=== PATIENT | male | born 1960 | race African-American/Black ===

== ENCOUNTER 2016-07-15 08:05 | Emergency (ER) | payer OTHER, BC ==
[2016-07-15 08:32] VITALS: TEMP 98; BMI 25.1
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
[2016-07-15] MEDS ORDERED: OXYCODONE/APAP 5/325MG COMBO TABLET PO ONE (08:39)
[2016-07-15] MEDS ORDERED: METHOCARBAMOL 500 MG TABLET PO ONE (08:39)
[2016-07-15] MEDS ORDERED: IBUPROFEN 600 MG TABLET (FP) PO ONE ×2 (08:39→09:01)
[2016-07-15] MEDS ORDERED: OXYCODONE/APAP 5/325MG COMBO TABLET ONE (09:00)
[2016-07-15] MEDS ORDERED: METHOCARBAMOL 500 MG TABLET ONE (09:01)
[2016-07-15 11:52] VITALS: BP 156/89; PULSE 76
== END 2016-07-15 11:52 | disposition home or self-care (01) ==
LOC: JER 08:05
DX: M25.512 Pain in left shoulder (principal); V43.52XA Car driver injured in collision with other type car in traffic accident, initial encounter; Y93.89 Activity, other specified; Y92.410 Unspecified street and highway as the place of occurrence of the external cause
CPT/HCPCS: 73010-TC; 73030-TC-LT; 73070-TC-LT; 73523-TC; 99281-25

== ENCOUNTER 2023-06-12 15:21 | Inpatient (IN) | payer BC, OTHER ==
[2023-06-12 15:43] VITALS: BMI 33.2
[2023-06-12 17:06] LABS: BASO % 0.4 % (0-2.0); EOS % 0.9 % (0-4.5); HEMATOCRIT 21.2 % (35.4-49); LYMPH % 23.5 % (8-40); MCHC 28.6 g/dl (32.0-35.9); MEAN CELL VOLUME 55.7 fl (80-96); MEAN PLT VOLUME 7.8 fl (7.5-11.1); MONO % 6.9 % (3.8-10.2); NEUT % 68.3 % (42.8-82.8); PLATELET COUNT 624 10^3/uL (134-434); RDW 21.8 % (11.9-15.9); WHITE BLOOD COUNT 6.1 K/mm3 (4.0-10.0)
[2023-06-12 17:09] LABS: MCH 15.9 pg (25.7-33.7)
[2023-06-12 17:16] LABS: INR 1.08 (0.83-1.09); PROTHROMBIN TIME (PATIENT) 12.2 SEC (9.7-13.0)
[2023-06-12 17:18] LABS: ACTIVATED PTT 27.9 SECONDS (25.2-36.5)
[2023-06-12 17:42] LABS: POTASSIUM 4.1 mmol/L (3.5-5.1)
[2023-06-12 17:44] LABS: ALBUMIN 3.8 g/dl (3.4-5.0); BLOOD UREA NITROGEN 24.2 mg/dL (7-18)
[2023-06-12 17:48] LABS: CREATININE 1.3 mg/dL (0.55-1.3)
[2023-06-12 17:49] LABS: BILIRUBIN,TOTAL 0.6 mg/dL (0.2-1)
[2023-06-13] MEDS: oxyCODONE HCL 5 MG TABLET PO ONE (06:35)
[2023-06-13 08:17] LABS: BASO % 0.4 % (0-2.0); EOS % 1.6 % (0-4.5); HEMATOCRIT 24.6 % (35.4-49); HEMOGLOBIN 7.3 GM/dL (11.7-16.9); LYMPH % 27.5 % (8-40); MCHC 29.8 g/dl (32.0-35.9); MEAN PLT VOLUME 7.9 fl (7.5-11.1); MONO % 6.6 % (3.8-10.2); NEUT % 63.9 % (42.8-82.8); PLATELET COUNT 515 10^3/uL (134-434); RBC 3.97 M/mm3 (4.00-5.60); RDW 29.3 % (11.9-15.9); WHITE BLOOD COUNT 6.2 K/mm3 (4.0-10.0)
[2023-06-13 08:21] LABS: MCH 18.4 pg (25.7-33.7)
[2023-06-13 08:26] LABS: POTASSIUM 4.4 mmol/L (3.5-5.1)
[2023-06-13 08:34] LABS: CALCIUM 8.6 mg/dL (8.5-10.1)
[2023-06-13 08:38] LABS: CREATININE 1.2 mg/dL (0.55-1.3)
[2023-06-13] MEDS: traMADol HCL 50 MG TABLET PO PRN ×2 (10:56→17:39)
[2023-06-13 10:57] LABS: URIC ACID 5.9 mg/dL (2.6-7.2)
[2023-06-14] MEDS ORDERED: IRON SUCROSE INJECTION 200 MG in SODIUM CHLORIDE 90 ML IVPB ONE (10:00)
[2023-06-14 10:16] LABS: BASO % 0.2 % (0-2.0); EOS % 2.7 % (0-4.5); HEMATOCRIT 26.7 % (35.4-49); HEMOGLOBIN 7.9 GM/dL (11.7-16.9); LYMPH % 20.5 % (8-40); MCHC 29.6 g/dl (32.0-35.9); MEAN CELL VOLUME 62.4 fl (80-96); MEAN PLT VOLUME 8.1 fl (7.5-11.1); MONO % 6.7 % (3.8-10.2); NEUT % 69.9 % (42.8-82.8); PLATELET COUNT 559 10^3/uL (134-434); RBC 4.28 M/mm3 (4.00-5.60); RDW 29.6 % (11.9-15.9)
[2023-06-14 10:22] LABS: MCH 18.5 pg (25.7-33.7)
[2023-06-14 10:46] LABS: POTASSIUM 4.2 mmol/L (3.5-5.1)
[2023-06-14 10:51] LABS: CALCIUM 8.9 mg/dL (8.5-10.1)
[2023-06-14 10:52] LABS: ALBUMIN 3.4 g/dl (3.4-5.0); BLOOD UREA NITROGEN 19.3 mg/dL (7-18)
[2023-06-14 10:55] LABS: CREATININE 1.2 mg/dL (0.55-1.3)
[2023-06-14 10:56] LABS: TOT PROT 6.6 g/dl (6.4-8.2)
[2023-06-14] MEDS: IRON SUCROSE INJECTION 200 MG in SODIUM CHLORIDE 100 ML IVPB ONE (11:39)
[2023-06-15 08:32] LABS: BASO % 0.6 % (0-2.0); EOS % 3.3 % (0-4.5); HEMATOCRIT 28.7 % (35.4-49); HEMOGLOBIN 8.3 GM/dL (11.7-16.9); LYMPH % 30.5 % (8-40); MCHC 28.9 g/dl (32.0-35.9); MEAN CELL VOLUME 63.1 fl (80-96); MEAN PLT VOLUME 7.9 fl (7.5-11.1); MONO % 6.3 % (3.8-10.2); NEUT % 59.3 % (42.8-82.8); PLATELET COUNT 573 10^3/uL (134-434); RBC 4.55 M/mm3 (4.00-5.60); WHITE BLOOD COUNT 6.5 K/mm3 (4.0-10.0)
[2023-06-15 08:34] LABS: MCH 18.2 pg (25.7-33.7)
[2023-06-15] MEDS: BISACODYL 5 MG TABLET.DR (FP) PO ONE (17:02)
[2023-06-15] MEDS: PEG 3350/NA SULF BICARB CL/KCL 4000 ML SOLN.RECON PO ONE (17:22)
[2023-06-16 08:35] LABS: BASO % 0.3 % (0-2.0); EOS % 2.4 % (0-4.5); HEMATOCRIT 29.5 % (35.4-49); HEMOGLOBIN 8.7 GM/dL (11.7-16.9); LYMPH % 21.1 % (8-40); MCHC 29.6 g/dl (32.0-35.9); MEAN CELL VOLUME 62.7 fl (80-96); MONO % 7.2 % (3.8-10.2); PLATELET COUNT 549 10^3/uL (134-434); RDW 31.3 % (11.9-15.9); WHITE BLOOD COUNT 6.3 K/mm3 (4.0-10.0)
[2023-06-16 08:37] LABS: MCH 18.5 pg (25.7-33.7)
[2023-06-16 08:47] LABS: INR 1.11 (0.83-1.09); PROTHROMBIN TIME (PATIENT) 12.5 SEC (9.7-13.0)
[2023-06-16 08:53] LABS: POTASSIUM 4.1 mmol/L (3.5-5.1)
[2023-06-16 08:57] LABS: BLOOD UREA NITROGEN 14.2 mg/dL (7-18)
[2023-06-16 09:00] LABS: CREATININE 1.3 mg/dL (0.55-1.3)
[2023-06-16 09:22] LABS: ANISOCYTOSIS 3+; MACROCYTOSIS 0
[2023-06-16] MEDS ORDERED: traMADol HCL 50 MG TABLET PO PRN (19:44)
[2023-06-17] MEDS: PANTOPRAZOLE 40 MG TABLET PO SCH (10:08)
[2023-06-17] MEDS: IRON SUCROSE INJECTION 200 MG in SODIUM CHLORIDE 100 ML IVPB ONE (12:31)
[2023-06-18 08:28] LABS: BASO % 0.6 % (0-2.0); EOS % 2.3 % (0-4.5); HEMATOCRIT 30.2 % (35.4-49); LYMPH % 22.9 % (8-40); MCHC 29.7 g/dl (32.0-35.9); MEAN CELL VOLUME 63.4 fl (80-96); MEAN PLT VOLUME 8.1 fl (7.5-11.1); MONO % 5.3 % (3.8-10.2); NEUT % 68.9 % (42.8-82.8); PLATELET COUNT 482 10^3/uL (134-434); RBC 4.76 M/mm3 (4.00-5.60); RDW 32.5 % (11.9-15.9); WHITE BLOOD COUNT 5.7 K/mm3 (4.0-10.0)
[2023-06-18 08:31] LABS: MCH 18.8 pg (25.7-33.7)
[2023-06-19 10:36] LABS: BASO % 0.4 % (0-2.0); EOS % 2.3 % (0-4.5); HEMOGLOBIN 8.6 GM/dL (11.7-16.9); LYMPH % 13.3 % (8-40); MCH 18.9 pg (25.7-33.7); MCHC 29.8 g/dl (32.0-35.9); MEAN CELL VOLUME 63.5 fl (80-96); MEAN PLT VOLUME 7.8 fl (7.5-11.1); MONO % 7.3 % (3.8-10.2); NEUT % 76.7 % (42.8-82.8); PLATELET COUNT 409 10^3/uL (134-434); RBC 4.57 M/mm3 (4.00-5.60); WHITE BLOOD COUNT 6.4 K/mm3 (4.0-10.0)
[2023-06-19 11:01] LABS: ANISOCYTOSIS 3+; MACROCYTOSIS 0
[2023-06-19 11:05] LABS: POTASSIUM 4.1 mmol/L (3.5-5.1)
[2023-06-19 11:06] LABS: CALCIUM 8.9 mg/dL (8.5-10.1)
[2023-06-19 11:07] LABS: ALBUMIN 3.4 g/dl (3.4-5.0)
[2023-06-19 11:10] LABS: CREATININE 1.3 mg/dL (0.55-1.3)
[2023-06-19 11:11] LABS: BILIRUBIN,TOTAL 0.6 mg/dL (0.2-1)
[2023-06-19 11:12] LABS: TOT PROT 6.6 g/dl (6.4-8.2)
[2023-06-19 11:23] LABS: ERYTHROCYTE SEDIMENTATION RATE 23 mm/hr (0-20)
[2023-06-20] MEDS: IRON SUCROSE INJECTION 200 MG in SODIUM CHLORIDE 90 ML IVPB ONE (09:03)
[2023-06-20 13:42] VITALS: BP 115/79; PULSE 85; RESP 19; TEMP 98.8
== END 2023-06-20 15:08 | disposition home or self-care (01) | DRG 812 ==
LOC: JER 15:21 → JERBED 19:49 → J7W 06-13 00:21 → OBSVTOIN 06-19 10:11
PROVIDERS: ADMIT Internal Medicine; ATTEND Internal Medicine
DX: D50.9 Iron deficiency anemia, unspecified (principal); G62.9 Polyneuropathy, unspecified; I78.0 Hereditary hemorrhagic telangiectasia; I73.9 Peripheral vascular disease, unspecified; M79.672 Pain in left foot
CPT/HCPCS: 36415; 36430; 71045-TC-FY; 73630-TC-LT; 73719-LT; 80048; 80053; 82272; 82728; 83036; 83540; 83550; 84550; 85025; 85610; 85651; 85730; 86140; 86850; 86900; 86901; 86922; 87338; 88305-TC; 88342-TC; 93005; 93010; 93926-TC; 99285-25; G0378; J1756; P9058

== ENCOUNTER 2024-02-19 04:41 | Day surgery (SDC) | payer BC, OTHER ==
[2024-02-13 07:49] VITALS: BMI 32.9
[2024-02-19 10:08] VITALS: TEMP 98
[2024-02-19 10:14] VITALS: RESP 17
[2024-02-19 10:39] VITALS: BP 97/43; PULSE 62
== END 2024-02-19 11:00 | disposition home or self-care (01) ==
LOC: JASU-ENDO 04:41
PROVIDERS: ATTEND Internal Medicine Gastroenterology
PROC: 0DB78ZX Excision of Stomach, Pylorus, Via Natural or Artificial Opening Endoscopic, Diagnostic (ICD-10-PCS; 2024-02-19)
PROC: 0DB68ZX Excision of Stomach, Via Natural or Artificial Opening Endoscopic, Diagnostic (ICD-10-PCS; principal; 2024-02-19 09:30)
DX: K29.50 Unspecified chronic gastritis without bleeding (principal); K31.819 Angiodysplasia of stomach and duodenum without bleeding
CPT/HCPCS: 88305-TC; 88342-TC

== ENCOUNTER 2024-06-18 06:00 | Day surgery (SDC) | payer BC, OTHER ==
[2024-06-16 13:25] VITALS: BMI 32.1
[2024-06-18] MEDS ORDERED: PROPOFOL 20 ML ONE (07:26)
[2024-06-18] MEDS ORDERED: LIDOCAINE HCL/PF 2% SDV 5ML VIAL ONE (07:28)
[2024-06-18] MEDS ORDERED: ROCURONIUM BROMIDE 50 MG/5 ML SYRINGE ONE ×2 (07:28→08:41)
[2024-06-18] MEDS ORDERED: MIDAZOLAM HCL 2 MG/2 ML SINGLE DOSE VIAL ONE (08:11)
[2024-06-18] MEDS: ceFAZolin SODIUM 1 GM VIAL IVPB ONE (08:38)
[2024-06-18] MEDS: BUPIVACAINE HCL/PF 0.5% (5MG/ML) 10 ML VIAL IJ ONE (08:45)
[2024-06-18] MEDS ORDERED: SUGAMMADEX SODIUM 200 MG/2 ML VIAL ONE (10:23)
[2024-06-18] MEDS ORDERED: LACTATED RINGERS SOLUTION 1,000 ML IV SCH (10:30)
[2024-06-18] MEDS ORDERED: oxyCODONE HCL 5 MG TABLET PO PRN (10:30)
[2024-06-18] MEDS ORDERED: ONDANSETRON 4 MG/2 ML VIAL IVPUSH PRN (10:30)
[2024-06-18] MEDS ORDERED: DEXAMETHASONE SOD PHOSPHATE 4 MG/1 ML VIAL ONE (10:35)
[2024-06-18] MEDS ORDERED: ONDANSETRON 4 MG/2 ML VIAL ONE (10:35)
[2024-06-18] MEDS ORDERED: ACETAMINOPHEN INJECTION 100 ML ONE (10:58)
[2024-06-18 14:47] VITALS: BP 147/83; PULSE 90; RESP 18; TEMP 97.5
== END 2024-06-18 15:11 | disposition home or self-care (01) ==
LOC: JASU-SURG 06:00
PROVIDERS: ATTEND Surgery
PROC: 0YUA4JZ Supplement Bilateral Inguinal Region with Synthetic Substitute, Percutaneous Endoscopic Approach (ICD-10-PCS; principal; 2024-06-18 08:00)
DX: K40.20 Bilateral inguinal hernia, without obstruction or gangrene, not specified as recurrent (principal)
CPT/HCPCS: 49650; S2900; 86850; 86900; 86901; 94760; C1781; J0131